=== PATIENT | male | born 1995 | race Caucasian/White ===

== ENCOUNTER 2023-10-03 17:59 | Emergency (ER) | payer SELFPAY ==
[2023-10-03 18:00] VITALS: BP 142/94; PULSE 113; RESP 18; TEMP 36.6; O2SAT 100; BMI 22.6
--- NOTE | 2023-10-03 20:10 | EDS_ITS ---
HPI HPI - GI History of Present Illness Chief Complaint: Abd Pain Informant: patient Abdominal Pain/Flank Pain Onset: Days Context: Gradual Onset Timing: Intermittent Quality: Cramping Current Severity: Mild Maximum Severity: Mild Worsened by: Nothing Relieved by: Nothing Nausea/Vomiting/Emesis GI Symptom: Negative for Nausea or Vomiting Diarrhea/Melena/Hematochezia GI Symptom: Negative for Diarrhea, Melena or Hematochezia Associated Symptoms Associated Symptoms: Negative for Dysuria, Frequency or Hematuria Narrative Narrative: 28-year-old male complaining of abdominal pain after eating the last 3 to 4 days. It is periumbilical. Denies any dysuria. No fever. No weight loss. No diarrhea or constipation. He states has been having normal bowel movements. Denies any melena. Denies any abdominal trauma. Denies any prior abdominal surgeries. Also thinks he has a growth coming off the inside of his left lower jaw. Prior similar symptoms: No Recent Illness/Hospitalization: No PFSH PFSH Medical History Fatigue Hypertension Home Medications NK 10/03/23 [History Last Taken Unknown] Allergy/AdvReac Type Severity Reaction Status Date / Time No Known Allergies Allergy Verified 10/03/23 18:04 Social History Smoking Status: Current every day smoker tobacco type: cigarettes alcohol intake: current ROS ROS ED ROS Narrative Abdominal pain. Denies nausea, vomiting, diarrhea, constipation or dysuria. No fever or weight loss. Review of Systems ROS Unobtainable: Denies due to encephalopathy Constitutional Constitutional ED: Denies chills or fever(s) ENT ENT ED: Denies ear pain Cardiovascular Cardiovascular: Denies chest pain Respiratory/Chest Respiratory/Chest: Denies cough Gastrointestinal Gastrointestinal: Reports abdominal pain; Denies constipation, diarrhea, melena, nausea or vomiting Genitourinary Genitourinary ED: Denies dysuria Musculoskeletal Musculoskeletal: Denies arthralgias Integumentary Denies abscess or Abrasions Neurologic Neurologic: Denies headache(s) Psychiatric Psychiatric: Denies anxiety Endocrine Endocrinology: Denies polydipsia Hematologic/Lymphatic Hematologic/Lymphatic: Denies easy bleeding Allergic/Immunologic Allergic/Immunologic ED: Denies mouth swelling, tongue swelling or urticaria EXAM Physical Exam Narrative Exam Narrative: 28-year-old male no acute distress vital signs stable afebrile. HEENT exam normal. Good dentition. Normal gums. He does have a bony growth that is very small and the inside of his left lower jaw is consistent with an early tophi. No abscess. Nothing to drain. Neck nontender no lymphadenopathy. Lungs clear. Heart regular rhythm. Abdomen soft, nontender, nondistended normal bowel sounds no peritoneal signs. Currently no hernia or mass. Right upper quadrant normal nontender. Right lower quadrant completely nontender. No McBurney's point tenderness. External exam unremarkable. No hernias or masses. Moving all 4 extremities. Back normal. He is awake and alert. No focal motor deficits. Very benign abdominal exam. Const Vital Signs: 10/03/23 18:00 Temperature 97.8 F Temperature Source Temporal Pulse Rate 113 H Respiratory Rate 18 Blood Pressure 142/94 H Blood Pressure Mean 110 Pulse Ox 100 Oxygen Delivery Method Room Air Positive well nourished and well developed; Negative for obese, cachectic, contractures or unkempt General Appearance ED: well developed and NAD; Negative for unkempt, cachectic, contractures or pallor Nutritional Appearance: Negative for cachectic or obese HEENT Reports moist mucous membranes normocephalic and atraumatic; Negative for trauma or tenderness Eyes PERRL and EOMs intact bilaterally General Eye ED: Negative for pale conjunctiva Neck no lymphadenopathy, supple and no JVD General: Negative for tenderness Carotids: Negative for other Lymph Lymphatic: Negative for other Resp normal respiratory effort Effort and Inspection: Negative for respiratory distress Auscultation: Negative for rales, rhonchi or wheezes Cardio regular rate, regular rhythm, S1 normal heart sound, S2 normal heart sound and no murmurs Rate: Negative for bradycardia or tachycardic Rhythm: Negative for abnormal rhythm GI non-tender, non-distended and no masses Inspection: Negative for abdominal distention Palpation: soft; Negative for tender, guarding, rigid, hepatomegaly, splenomegaly, hernia, mass, pulsatile mass or rebound tenderness present Back/Spine no CVA tenderness General Back: Negative for CVA tenderness Cervical Spine: Negative for cervical spine tenderness Thoracic Spine / Upper Back: Negative for thoracic spinal tenderness Lumbar Spine / Lower Back: Negative for lumbar spinal tenderness Extremity full ROM General Extremety ED: Negative for edema or tenderness General Extremity: Negative for edema Neuro CN's II-XII intact bilaterally and moves all extremities Sensorium / Orientation: alert, oriented to person, oriented to place and oriented to time; Negative for orientation impaired, confused, lethargic or stuporous Motor Exam: strength 5/5 throughout Psych mental status grossly normal and thought process normal Appearance: Negative for unkempt Skin no wounds General Skin Exam: Negative for jaundice or pallor Lesions: no lesions Rashes: no rashes Trauma: Negative for abrasion Nails: Negative for discolored MDM MDM MDM Narrative Medical decision making narrative: 28-year-old with nonspecific abdominal pain with benign abdominal exam. Labs to be obtained. I do not think is going to need any imaging. Repeat exam is doing well at 11 PM. Abdomen benign. I went over his test results. He will be discharged home. Outpatient follow-up. History & Record Review Discussion w/independent historian: Patient Lab Data Attestation: I reviewed the patient's lab results. Lab results narrative: CBC normal. White count of 6. H&H 15 and 44. Platelets 232. Chemistries unremarkable. Gap of 4. Normal BUN and creatinine. Glucose 118. Liver enzymes normal. Lipase normal at 35. Labs: Laboratory Results - last 24 hr 10/03/23 18:50 WBC 6.2 RBC 5.20 Hgb 15.0 Hct 44.8 MCV 86.2 MCH 28.8 MCHC 33.5 RDW Std Deviation 40.6 RDW Coeff of Eliana 13.1 Plt Count 232 MPV 11.5 Immature Gran % (Auto) 0.200 Neut % (Auto) 51.1 Lymph % (Auto) 31.1 [place] % (Auto) 6.6 Eos % (Auto) 10.5 H Baso % (Auto) 0.5 Absolute Neuts (auto) 3.2 Absolute Lymphs (auto) 1.93 Nucleated RBC % 0 Sodium 142 Potassium 3.6 Chloride 111 H Carbon Dioxide 27.0 Anion Gap 4 L BUN 8 Creatinine 1.14 Estim Creat Clear Calc 96.05 Est GFR (MDRD) Af Amer 97 Est GFR (MDRD) Non-Af 80 BUN/Creatinine Ratio 7.0 L Glucose 118 H Calcium 9.4 Total Bilirubin 0.60 AST 20 ALT 21 Alkaline Phosphatase 65 Total Protein 7.5 Albumin 4.0 Globulin 3.5 Albumin/Globulin Ratio 1.1 Lipase 35 Discharge Plan Triage Chief Complaint: Abd Pain ED Provider: Julius Arias Dx/Rx/DC Orders Clinical Impression: Abdominal pain Instructions: Abdominal Pain Prescriptions: No Action NK Primary Care Provider: Care Physician,No Primary Referrals: Yakov Hernandez MD [Med Staff - [employer]] - 10-14 Days if not better Care Physician,No Primary [Primary Care Provider] - Activity Restrictions/Additional Instructions: Your labs are all normal. Follow-up with a local primary care physician if your abdominal pain is not improving. The bump on the inside your jaw is most likely just accessory bone. You will need to do anything with that. If it would get much much larger you can consider having an oral surgeon remove it but generally they do not need to do anything with these. Disposition Disposition: Home, Self Care
--- OUTSIDE RECORDS SUMMARY | 2023-10-03 20:21 | XMS RPT_ITS | CCD ---
Author Name Unknown Address [address] [place] [address] Organization [facility] Care Team Providers Care Specialist Field Engineer Name Role Phone Unavailable Primary Care Provider Unavailabl e Medications Current Medications Medication Drug Class(es) Dates Sig (Normalized) Sig (Original) methocarbamol 500 mg oral tablet (1 source) Muscle Relaxant Start: 08-02-2023 End: 08-05-2023 take 1 tablet by mouth every six hours as needed methocarbamol (ROBAXIN) 500 mg tablet Take 1 tablet by mouth every 6 hours as needed (Pain) for up to 3 days. 12 tablet 0 08/02/2023 08/05/2023 Active Completed/Discontinued Medications Medication Drug Class(es) Dates Sig (Normalized) Sig (Original) busPIRone hydrochloride 5 mg oral tablet (1 source) Start: 06-01-2021 take 1 tablet by mouth three times daily as needed busPIRone (BUSPAR) 5 mg tablet Indications: GILES (generalized anxiety disorder) , Anxiety with depression Take 1 tablet by mouth three times daily as needed. 90 tablet 1 06/01/2021 Active Problems Problem Classification Problem Date Documented Da te Episodic/Chronic Other connective tissue disease (1 source) Muscle spasm of cervical muscle of neck; Translations: [Other muscle spasm] 08-02-2023 Episodic Spondylosis; intervertebral disc disorders; other back problems (1 source) Neck pain; Translations: [Cervicalgia] 08-02-2023 Episodic Results Test Name Value Interpretation Reference Range Facil ity Vital Signs Date Time Vital Sign Value Performing Clinician Faci lity 08-02-2023 14:43-0500 Body temperature 98.29 [degF] Haleigh MALDONADO Work Phone: [facility] 08-02-2023 14:43-0500 Body weight 74.75 kg Krislyn Aberegg PA Work Phone: [facility] 08-02-2023 14:43-0500 Diastolic blood pressure 90 mm[Hg] Krislyn Aberegg PA Work Phone: [facility] 08-02-2023 14:43-0500 Heart rate 70 /min Krislyn Aberegg PA Work Phone: [facility] 08-02-2023 14:43-0500 Respiratory rate 21 /min Krislyn Aberegg PA Work Phone: [facility] 08-02-2023 14:43-0500 SaO2% (BldA) [Mass fraction] 99 % Krislyn Aberegg PA Work Phone: [facility] 08-02-2023 14:43-0500 Systolic blood pressure 122 mm[Hg] Krislyn Aberegg PA Work Phone: [facility] Encounters Encounter Date Encounter Type Care Provider Facility Start: 08-02-2023 End: 08-02-2023 ambulatory Facility:[facility] Start: 08-02-2023 End: 08-02-2023 Patient encounter procedure Haleigh Tolbert Aberesandor PA Work Phone: [facility] Plan of Treatment Date Care Activity Detail Author Start: 04-27-2023 Influenza vaccination Influenza Vacc ine (#1) [facility] Start: 08-27-2022 Depression Assessment Depression Ass essment [facility] Start: 2012 Urine microalbumin profile DTaP,Tdap,Td Vaccine (2 - Tdap) [facility] Start: 1999 Pneumococcal vaccination Pneum ococcal Vaccine (1 - PCV) [facility] Start: 1993 Covid-19 Vaccine (#1) Covid-19 Vacci ne (#1) [facility] Start: 1993 Hepatitis B Vaccine (1 of 3 - 3-dose series) Hepatitis B Vaccine (1 of 3 - 3-dose series) [facility] Payers Date Payer Category Payer Unknown [employer] PPO [id number] 2023-Present [phone] [address] [place] [address] PPO [id number] 2020 Unknown [id number] Social History Date Type Detail Facility Start: 08-02-2023 Tobacco smoking stat NHIS Smokes tobacco daily [facility] History of tobacco use Cigarette Smoker C [facility] Start: 06-01-2021 End: 08-02-2023 Cigarettes smoked current (pack per day) - Reported 0.5 [facility] Start: 08-02-2023 Tobacco use and exposure Smoke less tobacco non-user [facility] Start: 08-02-2023 Alcohol intake Lifetime non-d kurt (finding) [facility] Start: 06-01-2021 End: 08-02-2023 Tobacco use panel [facility] National Score (1-10 0), lower number is lower risk Not on file [facility] Start: 1993 Sex Assigned At Not on file C [facility] Progress note 08-02-2023 Note Date & Type Note Facility 08-02-2023 Note HNO ID: [id number] Author: Haleigh Harrington PA Service: ? Author Type: Physician Gum Remover Type: Progress Notes Filed: 08/02/2023 2:58 PM Note Text: This note was created using [employer]ogen[employer]. Subjective Justice Jimenez is a 28 year old male. HPI 28-year-old male presents for right-sided neck pain and stiffness. Patient states that the beginning of the week he woke up and had some tightness on the right side of his neck. Pain is worse with movement. He states that he continues to have pain on the right side of his neck. He has taken Motrin with minimal improvement. Patient states that he gave himself a massage yesterday on the neck which helped loosen it up and he felt better. However, when he got up today, the muscles felt tight again. 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 He does not recall a specific injury that would cause the neck to hurt, just woke up like this on Sunday. He does report that he has trouble getting comfortable at night and possibly slept wrong on it. He denies any arm pain. No numbness or tingling in the arms or legs. He denies any sore throat. No headache, fever. He denies any history of neck issues or neck injury. No fall. PAST MEDICAL HISTORY Diagnosis Date Anxiety No past surgical history on file. ALLERGIES Patient has no known allergies. MEDICATIONS methocarbamol (ROBAXIN) 500 mg tablet Take 1 tablet by mouth every 6 hours as needed (Pain) for up to 3 days. predniSONE (DELTASONE) 20 mg tablet Take 2 tablets by mouth once daily for 4 days. Take daily with food. sertraline (ZOLOFT) 50 mg tablet Take 1 tablet by mouth once daily. 1/2 pill daily X 1 week; then increase to a whole pill daily. (Patient not taking: Reported on 08/02/2023) busPIRone (BUSPAR) 5 mg tablet Take 1 tablet by mouth three times daily as needed. (Patient not taking: Reported on 08/02/2023) FAMILY HISTORY Problem Relation Age of Onset Alcohol abuse Father Psoriasis Brother Social History Tobacco Use Smoking status: Every Day Packs/day: .5 Types: Cigarettes Smokeless tobacco: Never Vaping Use Vaping Use: Never used Substance Use Topics Alcohol use: Never Review of Systems Constitutional: Negative for chills and fever. HENT: Negative for congestion and sore throat. Respiratory: Negative for cough and shortness of breath. Gastrointestinal: Negative for diarrhea and vomiting. Musculoskeletal: Positive for neck pain and neck stiffness. Objective BP 122/90 Pulse 70 Temp 36.8 ?C (98.3 ?F) Resp 21 Wt 74.8 kg (164 lb 12.8 oz) SpO2 99% Physical Exam Vitals and nursing note reviewed. Constitutional: General: He is not in acute distress. Appearance: Normal appearance. He is not toxic-appearing. HENT: Nose: Nose normal. Mouth/Throat: Mouth: Mucous membranes are moist. Pharynx: No oropharyngeal exudate or posterior oropharyngeal erythema. Eyes: Conjunctiva/sclera: Conjunctivae normal. Neck: Comments: Slightly decreased ROM cervical spine due to pain. Pain with lateral rotation to the left and flexion. Neck is supple. No rigidity. No spinal tenderness. Tenderness over right-sided cervical paraspinal muscles and right trapezius muscle. Spasm noted in right trapezius muscle. Normal sensation and strength upper extremities. Cardiovascular: Rate and Rhythm: Normal rate and regular rhythm. Pulmonary: Effort: Pulmonary effort is normal. Breath sounds: Normal breath sounds. Musculoskeletal: Right shoulder: Tenderness (Right trapezius with spasm) present. No bony tenderness. Normal range of motion. Normal strength. Normal pulse. Cervical back: Neck supple. Tenderness present. No edema, erythema, signs of trauma, rigidity, torticollis or crepitus. Pain with movement and muscular tenderness present. No spinous process tenderness. Decreased range of motion. Comments: Normal sensation and strength upper extremities. Lymphadenopathy: Cervical: No cervical adenopathy. Skin: General: Skin is warm and dry. Neurological: Mental Status: He is alert. Assessment and Plan ASSESSMENT/PLAN: 1. Cervical pain - ICD9: 723.1, ICD10: M54.2 (primary diagnosis) -Suspect muscular pain/cervical strain. -Rx for Robaxin. Rx for prednisone. -Rest, ice. -Given red flag symptoms and when to go to ER including if he develops headache, fever, inability to move neck. Discussed signs of meningitis. Low suspicion for this. -Recommend follow-up with PCP if symptoms not improve in 1 week. 2. Trapezius muscle spasm - ICD9: 728.85, ICD10: M62.838 -See above. Diagnosis and treatment plan were discussed and questions were answered to the patient's satisfaction. Pt acknowledged understanding of concepts and follow up plan. Specific signs and symptoms that would indicate the need for higher level of care were discussed in detail warranting prompt ER evaluation. JOEL Welch [facility] History of Present illness Narrative 08-02-2023 Haleigh Harrington PA - 08/02/2023 2:53 PM EST Note Date & Type Note Facility 08-02-2023 History of Presen t illness Narrative This note was created using [employer]. Subjective Justice Jimenez is a 28 year old male. HPI 28-year-old male presents for right-sided neck pain and stiffness. Patient states that the beginning of the week he woke up and had some tightness on the right side of his neck. Pain is worse with movement. He states that he continues to have pain on the right side of his neck. He has taken Motrin with minimal improvement. Patient states that he gave himself a massage yesterday on the neck which helped loosen it up and he felt better. However, when he got up today, the muscles felt tight again. 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 He does not recall a specific injury that would cause the neck to hurt, just woke up like this on Sunday. He does report that he has trouble getting comfortable at night and possibly slept wrong on it. He denies any arm pain. No numbness or tingling in the arms or legs. He denies any sore throat. No headache, fever. He denies any history of neck issues or neck injury. No fall. PAST MEDICAL HISTORY Diagnosis Date Anxiety No past surgical history on file. ALLERGIES Patient has no known allergies. MEDICATIONS methocarbamol (ROBAXIN) 500 mg tablet Take 1 tablet by mouth every 6 hours as needed (Pain) for up to 3 days. predniSONE (DELTASONE) 20 mg tablet Take 2 tablets by mouth once daily for 4 days. Take daily with food. sertraline (ZOLOFT) 50 mg tablet Take 1 tablet by mouth once daily. 1/2 pill daily X 1 week; then increase to a whole pill daily. (Patient not taking: Reported on 08/02/2023) busPIRone (BUSPAR) 5 mg tablet Take 1 tablet by mouth three times daily as needed. (Patient not taking: Reported on 08/02/2023) FAMILY HISTORY Problem Relation Age of Onset Alcohol abuse Father Psoriasis Brother Social History Tobacco Use Smoking status: Every Day Packs/day: .5 Types: Cigarettes Smokeless tobacco: Never Vaping Use Vaping Use: Never used Substance Use Topics Alcohol use: Never Review of Systems Constitutional: Negative for chills and fever. HENT: Negative for congestion and sore throat. Respiratory: Negative for cough and shortness of breath. Gastrointestinal: Negative for diarrhea and vomiting. Musculoskeletal: Positive for neck pain and neck stiffness. Objective BP 122/90 Pulse 70 Temp 36.8 C (98.3 F) Resp 21 Wt 74.8 kg (164 lb 12.8 oz) SpO2 99% Physical Exam Vitals and nursing note reviewed. Constitutional: General: He is not in acute distress. Appearance: Normal appearance. He is not toxic-appearing. HENT: Nose: Nose normal. Mouth/Throat: Mouth: Mucous membranes are moist. Pharynx: No oropharyngeal exudate or posterior oropharyngeal erythema. Eyes: Conjunctiva/sclera: Conjunctivae normal. Neck: Comments: Slightly decreased ROM cervical spine due to pain. Pain with lateral rotation to the left and flexion. Neck is supple. No rigidity. No spinal tenderness. Tenderness over right-sided cervical paraspinal muscles and right trapezius muscle. Spasm noted in right trapezius muscle. Normal sensation and strength upper extremities. Cardiovascular: Rate and Rhythm: Normal rate and regular rhythm. Pulmonary: Effort: Pulmonary effort is normal. Breath sounds: Normal breath sounds. Musculoskeletal: Right shoulder: Tenderness (Right trapezius with spasm) present. No bony tenderness. Normal range of motion. Normal strength. Normal pulse. Cervical back: Neck supple. Tenderness present. No edema, erythema, signs of trauma, rigidity, torticollis or crepitus. Pain with movement and muscular tenderness present. No spinous process tenderness. Decreased range of motion. Comments: Normal sensation and strength upper extremities. Lymphadenopathy: Cervical: No cervical adenopathy. Skin: General: Skin is warm and dry. Neurological: Mental Status: He is alert. Assessment and Plan ASSESSMENT/PLAN: 1. Cervical pain - ICD9: 723.1, ICD10: M54.2 (primary diagnosis) -Suspect muscular pain/cervical strain. -Rx for Robaxin. Rx for prednisone. -Rest, ice. -Given red flag symptoms and when to go to ER including if he develops headache, fever, inability to move neck. Discussed signs of meningitis. Low suspicion for this. -Recommend follow-up with PCP if symptoms not improve in 1 week. 2. Trapezius muscle spasm - ICD9: 728.85, ICD10: M62.838 -See above. Diagnosis and treatment plan were discussed and questions were answered to the patient's satisfaction. Pt acknowledged understanding of concepts and follow up plan. Specific signs and symptoms that would indicate the need for higher level of care were discussed in detail warranting prompt ER evaluation. JOEL Welch documented in this encounter [facility] Evaluation note Note Date & Type Note Facility documented in this encounter [facility] Summary Purpose Family History No Family History Records Found Advance Directives No Advanced Directives Records Found Additional Source Comments Source Comments (unrecognize d section and content) In the event this informatio n is protected by the Federal Confidentiality of Alcohol and Drug Abuse Patient Records regulations: The Federal rules restrict any use of the information to criminally investigate or prosecute any alcohol or drug abuse patient.[facility] Reason for Visit (unrecogniz ed section and content) (unrecognized sect ion and content) No Status Records Found INFORMATION SOURCE (unrecogn ized section and content) FOR RECORDS PERTAINING TO PATIENTS WHO ARE OR HAVE BEEN ENROLLED IN A CHEMICAL DEPENDENCY/SUBSTANCEABUSE PROGRAM, SOME INFORMATION MAY BE OMITTED. This clinical summary was aggregated from multiple sources. Caution should be exercised in using it in the provision of clinical care. This summary normalizes information from multiple sources, and as a consequence, information in this document may materially change the coding, format and clinical context of patient data. In addition, data may be omitted in some cases. CLINICAL DECISIONS SHOULD BE BASED ON THE PRIMARY CLINICAL RECORDS. [employer] provides no warranty or guarantee of the accuracy or completeness of information in this document.
[2023-10-03 20:37] LABS: Absolute Lymphocyte Count 1.93 X10^3/uL (0.83-4.51); Absolute Neutrophil Count 3.2 X10^3/uL (2.0-7.7); Basophil# 0.03 X10^3/uL; Basophil% 0.5 % (0-1); Eosinophil# 0.65 X10^3/uL; Eosinophils% 10.5 % (0-5); Hematocrit 44.8 % (40-54); Lymphocyte # 1.93 X10^3/ul (0.83-4.51); Lymphocyte % 31.1 % (19-41); Mean Corp Hgb Conc 33.5 g/dL (32-36); Mean Corpuscular Hgb 28.8 pg (27.0-32.0); Mean Corpuscular Volume 86.2 fL (80-94); Mean Platelet Vol. 11.5 fl (6.2-12.0); Monocyte# 0.41 X10^3/uL; Monocyte% 6.6 % (0-10); NRBC Flagged by Analyzer 0 % (0-5); Neutrophil # 3.17 X10^3/uL (2.7-7.7); Neutrophil % 51.1 % (47-70); Platelet Count 232 K/mm3 (150-450); RBC Distribution Width CV 13.1 % (11.6-14.6); RBC Distribution Width SD 40.6 fl (35.1-43.9); White Blood Count 6.2 K/mm3 (4.4-11.0)
[2023-10-03 20:39] LABS: ALB/GLOB Ratio 1.1 RATIO (0.9-2.4); AST(SGOT) 20 U/L (15-37); Alanine Aminotransfer ALT/SGPT 21 U/L (16-61); Alkaline Phosphatase 65 U/L (45-117); Anion Gap 4 (5-15); BUN 8 mg/dL (7-18); Calcium,Total 9.4 mg/dL (8.5-10.1); Chloride 111 mmol/L (98-107); Creatinine, Serum 1.14 mg/dL (0.70-1.30); EST Glomerular Filtration Rate 80 mL/min (>60); Est Glom Filt Rate - Afr Amer 97 mL/min (>60); Estimated Creatinine Clearance 96.05 ml/min; Globulin 3.5 g/dL (2.2-4.2); Glucose 118 mg/dL (74-106); Lipase 35 U/L (13-75); Potassium 3.6 mmol/L (3.5-5.1); Protein, Total 7.5 g/dL (6.4-8.2); Sodium Level 142 mmol/L (136-145)
== END 2023-10-03 23:11 | disposition home or self-care (01) ==
PROVIDERS: Emergency Provider Emergency Medicine; Visit Provider Emergency Medicine
DX: R10.33 Periumbilical pain (principal); F17.210 Nicotine dependence, cigarettes, uncomplicated
CPT/HCPCS: 80053; 83690; 85025; 99283; A4216